=== PATIENT | female | born 1950 | race African-American/Black ===

== ENCOUNTER 2017-10-23 17:36 | Emergency (ER) | payer BC ==
[~2017-10-23] VITALS: Ht 162.6 cm; Wt 69.4 kg
[~2017-10-23 17:36] MED LIST: AMLO1CAP10 PO; AMLO1CAP5 PO; ASCO500C PO; CHOL10003 PO; CRESTOR20 MG PO; OMEG1CAP6 PO
[2017-10-23 17:50] VITALS: BP 129/82
[2017-10-23] MEDS ORDERED: TRAM-48 PO (18:36)
[2017-10-23] MEDS ORDERED: CEPH500T PO (18:36)
--- NOTE | 2017-10-23 18:37 | PHYS DOC ---
Past Medical History Past Medical History: No Pertinent History Past Surgical History: No Surgical History Alcohol Use: None Drug Use: None Adult General Chief Complaint Chief Complaint: ANKLE PROBLEM HPI HPI Patient is a 66 year old female who presents with a right ankle swelling redness and pain that began 2 weeks ago. Patient denies any known injury. Review of Systems Review of Systems Constitutional: Denies fever or chills [] Musculoskeletal: Denies back pain or joint pain [] Integument: right ankle swelling redness and pain Neurologic: Denies headache, focal weakness or sensory changes [] All other systems were reviewed and found to be within normal limits, except as documented in this note. Allergies Allergies Allergies Coded Allergies Type Severity Reaction Last Updated Verified No Known Drug Allergies 04/13/15 No Physical Exam Physical Exam Constitutional: Well developed, well nourished, no acute distress, non-toxic appearance. [] Skin: Warm, dry, no erythema, no rash. [] Back: No tenderness, no CVA tenderness. [] Extremities: Right lateral ankle with small amount of soft tissue swelling, days small amount of redness consistent with superficial cellulitis over the right ankle. Full range of motion to the right ankles and toes including flexion and extension as well as internal rotation and external rotation of the ankle. +2 right pedal pulse. Cap refill less than 2 seconds the right toes. Sensation intact to the right lower extremity. Neurologic: Alert and oriented X 3, normal motor function, normal sensory function, no focal deficits noted. [] Psychologic: Affect normal, judgement normal, mood normal. [] Current Patient Data Vital Signs Vital Signs Date Time Temp Pulse Resp B/P (MAP) Pulse Ox O2 Delivery O2 Flow Rate FiO2 10/23/17 17:50 98.1 93 16 95 Room Air 98.1 EKG EKG [] Radiology/Procedures Radiology/Procedures [] Course & Med Decision Making Course & Med Decision Making Pertinent Labs and Imaging studies reviewed. (See chart for details) Patient is in the ED with right ankle pain and swelling as well as redness for 2 weeks. Right ankle x-rays interpreted by Dr. Bustamante were negative for any acute findings. Patient does have superficial cellulitis of a the right ankle. Patient will be discharged with cephalexin and Ultram for pain. Ice wrap provided for the right ankle. Elevation and ice recommended. Follow-up with orthopedic doctor or primary care doctor in 1-2 weeks. Tetanus is up to date Dragon Disclaimer Dragon Disclaimer This electronic medical record was generated, in whole or in part, using a voice recognition dictation system. Departure Departure Impression: Primary Impression: Cellulitis of right ankle Additional Impression: Right ankle pain Disposition: 01 HOME, SELF-CARE Condition: STABLE Referrals: BEN HAGEN MD (PCP) Follow-up in 1-2 weeks ROSEMARY CAMEJO MD follow up in 1-2 weeks Patient Instructions: Ankle Pain, Cellulitis, [id number] Additional Instructions: You were seen with the right ankle pain swelling with redness. Your right ankle x-rays are negative for any fractures or acute findings. We put you on antibiotics to clear the superficial cellulitis/redness infection going on the ankle that causes swelling and pain. Wear the Seth wrap provided as tolerated. You can keep it on during the day and take it off at night. Follow up with your doctor or the provided doctor in 2 weeks Scripts Cephalexin (CEPHALEXIN) 500 Mg Tablet 1 TAB PO QID, #40 TAB Prov: THERESA PENDLETON APRN 10/23/17 Tramadol Hcl (ULTRAM) 50 Mg Tablet 1 TAB PO Q6HRS, #30 TAB Prov: THERESA PENDLETON APRN 10/23/17 Problem Qualifiers Additional Impression: Right ankle pain Chronicity: acute Qualified Codes: M25.571 - Pain in right ankle and joints of right foot THERESA PENDLETON APRN Oct 23, 2017 18:37
--- NOTE | 2017-10-24 08:50 | RAD ---
Right ankle, 3 views, 10/23/2017: History: Ankle injury There is patchy bony demineralization. No fracture or dislocation is identified. There is minimal spurring at the midfoot level. Moderate subcutaneous edema is noted. IMPRESSION: No acute bony abnormality is detected.
== END 2017-10-23 18:49 | disposition home or self-care (01) ==
LOC: ER 17:36
DX: L03.115 Cellulitis of right lower limb (principal); M25.571 Pain in right ankle and joints of right foot
CPT/HCPCS: 73610; 99284

== ENCOUNTER → 2019-03-17 | Outpatient (CLI) | payer BC, OTHER ==
[~2019-03-17] MED LIST changes: +CEPH500T PO; +TRAM-48 PO
--- NOTE | 2019-03-17 09:53 | RAD ---
DATE: 03/17/2019 EXAM: MAMMO BOB SCREENING BILATERAL HISTORY: Routine screening COMPARISON: 11/15/2016 This study was interpreted with the benefit of Computerized Aided Detection (CAD). Breast Density: SCATTERED The breast parenchyma shows scattered fibroglandular densities. Breast parenchyma level B. FINDINGS: 2-D and 3-D tomosynthesis imaging was performed in CC and MLO projections. There is an unchanged small lymph node type density present posterolaterally on the right. There is a new small nodular opacity in the lateral aspect of the left breast at approximately 9:00 location as best seen on left CC tomosynthesis images #27. There is a suggestion of associated architectural distortion. No other new or enlarging breast densities are seen. No suspicious microcalcifications are evident. IMPRESSION: Left breast asymmetry as described above. Diagnostic mammography to include spot compression CC and straight mediolateral views, as well as left breast ultrasound are suggested for further evaluation. BI-RADS CATEGORY: 0 INCOMPLETE: NEEDS ADDITIONAL IMAGING EVALUATION AND/OR PRIOR MAMMOGRAMS FOR COMPARISON. RECOMMENDED FOLLOW-UP: ADD ADDITIONAL IMAGING PQRS compliance statement: Patient information was entered into a reminder system with a target due date for the next mammogram. Mammography is a sensitive method for finding small breast cancers, but it does not detect them all and is not a substitute for careful clinical examination. A negative mammogram does not negate a clinically suspicious finding and should not result in delay in biopsying a clinically suspicious abnormality. "Our facility is accredited by the [employer] Mammography Program."
== END | disposition home or self-care (01) ==
LOC: MAMMO 07:42
PROVIDERS: ATTEND Family Medicine
DX: Z12.31 Encounter for screening mammogram for malignant neoplasm of breast (principal); N64.89 Other specified disorders of breast
CPT/HCPCS: 77063; 77067

== ENCOUNTER → 2019-03-31 | Outpatient (CLI) | payer OTHER ==
--- NOTE | 2019-03-31 11:47 | RAD ---
DATE: 03/31/2019 EXAM: DIGITAL DIAGNOSTIC LT, BREAST LEFT HISTORY: Suspicious screening study COMPARISON: 03/17/2019 This study was interpreted with the benefit of Computerized Aided Detection (CAD). Breast Density: SCATTERED The breast parenchyma shows scattered fibroglandular densities. Breast parenchyma level B. FINDINGS: Spot compression and straight mediolateral views of the left breast confirm the presence of an 8 mm irregular nodule in the upper outer quadrant of the left breast. It appears to lie at the 1-2 o'clock location. No associated microcalcifications are seen. Left breast ultrasound, 03/31/2019: The upper outer quadrant of the left breast was carefully scanned. A hypoechoic nodule is identified at the 1:00 location approximately 4 cm from the nipple. This corresponds in location to the mammographic mass. It measures 8 x 7 x 6 mm. It demonstrates angulated margins there is internal vascularity. There is a suggestion of mild posterior acoustic shadowing. No other abnormality is seen in this region. A limited exam of the left axilla demonstrated several small to medium sized axillary lymph nodes, as also noted on the mammograms. They do not demonstrate definite pathologic features. IMPRESSION: Suspicious nodule at the 1:00 location in the left breast as described above. Ultrasound-guided biopsy is suggested for further evaluation. Note: The findings were discussed with the patient at the time of the exam and is aware of our recommendation for biopsy. She will follow-up with Dr. Lester. BI-RADS CATEGORY: 4 SUSPICIOUS ABNORMALITY- BIOPSY SHOULD BE CONSIDERED RECOMMENDED FOLLOW-UP: BIO BIOPSY RECOMMENDED PQRS compliance statement: Patient information was entered into a reminder system with a target due date for the next mammogram. Mammography is a sensitive method for finding small breast cancers, but it does not detect them all and is not a substitute for careful clinical examination. A negative mammogram does not negate a clinically suspicious finding and should not result in delay in biopsying a clinically suspicious abnormality. "Our facility is accredited by the [employer] Mammography Program."
== END | disposition home or self-care (01) ==
LOC: MAMMO 10:32
PROVIDERS: ATTEND Family Medicine
DX: N63.21 Unspecified lump in the left breast, upper outer quadrant (principal)
CPT/HCPCS: 76641; 77065

== ENCOUNTER → 2019-04-19 | Outpatient (CLI) | payer OTHER ==
--- NOTE | 2019-04-19 14:12 | RAD ---
DATE: 04/19/2019. EXAM: DIGITAL DIAGNOSTIC LT, US GUID NDL PLACE/ASPI/BX. HISTORY: Left breast mass. Ultrasound-guided biopsy is requested. COMPARISON: 03/31/2019. FINDINGS: The procedure along with its risks and benefits were explained to the patient. She agreed to proceed. A timeout procedure was performed. The targeted mass at the left 1:00 position 4 cm from the nipple was visualized sonographically. The overlying skin was sterilely prepped and infiltrated with 1% lidocaine for local anesthesia. Under ultrasound guidance, 3 14-gauge core needle specimens were obtained and submitted in formalin. A postbiopsy clip was placed under ultrasound guidance. Instrumentation was withdrawn and a sterile dressing placed. There were no immediate complications. Post clip mammography was obtained digitally in CC and MLO projections and interpreted in on a dedicated workstation. This demonstrates a postbiopsy clip in correspondence with the target lesion. IMPRESSION: 1. Successful ultrasound-guided biopsy of a left breast mass at the 1:00 position 4 cm from the nipple. 2. The postbiopsy clip corresponds with the target lesion.
--- NOTE | 2019-04-21 13:08 | PATHOLOGY ---
[facility] Accession Number: [id number] . 01 Material submitted: . breast - LEFT BREAST, 10:00, 4CFN. Modifiers: left, 10:00 . 01 Clinical history: . Left breast mass . 02 Diagnosis: Breast, left, biopsy: - INVASIVE DUCTAL CARCINOMA, WELL DIFFERENTIATED. - See comment. . (MAP:[facility]; 04/20/2019) QMS/04/20/2019 . 02 Comment: Surgical Pathology Cancer Case Summary November 2017 . INVASIVE CARCINOMA OF THE BREAST BIOPSY: . Procedure ___ Needle biopsy . Specimen Laterality ___ Left . + Tumor Site: Invasive Carcinoma + ___ Not specified . Histologic Type ___ Invasive carcinoma of no special type (ductal, not otherwise specified) . Glandular (Acinar)/Tubular Differentiation ___ Score 2 (10% to 75% of tumor area forming glandular/tubular structures) . Nuclear Pleomorphism ___ Score 2 (cells larger than normal with open vesicular nuclei, visible nucleoli, and moderate variability in both size and shape) . Mitotic Rate ___ Score 1 (= 3 mitoses per mm2) (see Table 1) . Overall Grade ___ Grade 1 (scores of 3, 4, or 5) . Ductal Carcinoma In Situ (DCIS) ___ Not identified . + Lymphovascular Invasion + ___ Not identified . + Microcalcifications + ___ Not identified . Biomarker Studies ____ Pending, block A1 . . The case is discussed with Dr. Tran on 04/21/[address] Garza . Co-review: Dr. Meek . (MAP:[facility]; 04/20/2019) . 02 Electronically signed: . Andrez Garza MD, Pathologist NPI- [id number] . 01 Gross description: . The specimen is received in formalin, labeled "Gabriella Smith, left breast 10c 4cfn" and consists of 3 needle cores of yellow fibroadipose tissue measuring between 0.7 cm and 1.1 cm in length and 0.2 cm each in diameter which are entirely submitted in A1. The specimen was obtained at 1:40 PM on 04/19/2019 and placed in formalin at 1:45 PM. The cold ischemic time is 5 minutes and the total formalin fixation time is greater than 6 hours but less than 72 hours. (SDY; 04/19/2019) SYU/SYU . 02 Pathologist provided ICD-10: C50.912 . 02 CPT . 592485 Specimen Comment: A courtesy copy of this report has been sent to Specimen Comment: [phone], , . Specimen Comment: Report sent to ,DR TRAN / DR CULVER Performed at: [address], [place] [id number] MD Terry Yao MD Phone: [phone] Performed at: [address] [id number] MD Em Mendez MD Phone: [phone]
== END | disposition home or self-care (01) ==
LOC: US 15:43
PROVIDERS: ATTEND Surgery
DX: C50.912 Malignant neoplasm of unspecified site of left female breast (principal)
CPT/HCPCS: 19083; 77065; 88305; 88361; C1713; 19081; 76942

== ENCOUNTER 2019-11-01 08:52 | Emergency (ER) | payer OTHER ==
[~2019-11-01] VITALS: Ht 162.6 cm; Wt 58.5 kg
[~2019-11-01 08:52] MED LIST changes: -AMLO1CAP10 PO; +AMLO1CAP11 PO
[2019-11-01 09:16] VITALS: BP 130/100
--- NOTE | 2019-11-01 09:56 | PHYS DOC ---
Past Medical History Past Medical History: High Cholesterol, Hypertension Additional Past Medical Histor: BREAST CANCER & RADIATION Past Surgical History: Other Additional Past Surgical Histo: BREAST BIOPSY Alcohol Use: None Drug Use: None Adult General Chief Complaint Chief Complaint: BACK PAIN - NO INJURY HPI HPI Patient is a 68 year old female who presents with back pain has been ongoing since . Patient has chronic lower back pain. The patient rates her pain 9 out of 10 severity. The patient started HEENT ibuprofen at home as helped with mild success. Review of Systems Review of Systems Constitutional: Denies fever or chills [] Eyes: Denies change in visual acuity, redness, or eye pain [] HENT: Denies nasal congestion or sore throat [] Respiratory: Denies cough or shortness of breath [] Cardiovascular: No additional information not addressed in HPI [] : Denies dysuria or hematuria [] Musculoskeletal: Reports R flank pain. Integument: Denies rash or skin lesions [] Neurologic: Denies headache, focal weakness or sensory changes [] Endocrine: Denies polyuria or polydipsia [] Complete systems were reviewed and found to be within normal limits, except as documented in this note. Current Medications Current Medications Current Medications Medications (Trade) Dose Ordered Sig/Reyes Start Time Stop Time Status Last Admin Dose Admin Ketorolac Tromethamine (Toradol 30mg Vial) 30 mg 1X STAT 11/01/19 10:47 11/01/19 10:49 DC Orphenadrine Citrate (Norflex) 60 mg 1X ONCE 11/01/19 11:00 11/01/19 11:01 DC Allergies Allergies Allergies Coded Allergies Type Severity Reaction Last Updated Verified No Known Drug Allergies 04/13/15 No Physical Exam Physical Exam Constitutional: Well developed, well nourished, no acute distress, non-toxic appearance. [] HENT: Normocephalic, atraumatic, bilateral external ears normal, oropharynx m oist, no oral exudates, nose normal. [] Eyes: PERRLA, EOMI, conjunctiva normal, no discharge. [] Neck: Normal range of motion, no tenderness, supple Skin: Warm, dry, no erythema, no rash. [] Back: mild right lower back tenderness, no CVA tenderness. [] Extremities: No tenderness, no cyanosis, no clubbing, ROM intact, no edema. [] Neurologic: Alert and oriented X 3, normal motor function, normal sensory function, no focal deficits noted. [] Psychologic: Affect normal, judgement normal, mood normal. [] Current Patient Data Vital Signs Vital Signs Date Time Temp Pulse Resp B/P (MAP) Pulse Ox O2 Delivery O2 Flow Rate FiO2 11/01/19 09:16 97.6 85 18 130/100 (110) 97 Room Air 97.6 Lab Values Laboratory Tests Test 11/01/19 10:06 Urine Collection Type Unknown Urine Color Aviva Urine Clarity Clear Urine pH 5.0 Urine Specific [place] 1.025 Urine Protein Negative mg/dL (NEG-TRACE) Urine Glucose (UA) Negative mg/dL (NEG) Urine Ketones (Stick) Trace mg/dL (NEG) Urine Blood Negative (NEG) Urine Nitrite Negative (NEG) Urine Bilirubin Small (NEG) Urine Urobilinogen Dipstick 0.2 mg/dL (0.2 mg/dL) Urine Leukocyte Esterase Negative (NEG) Urine RBC 0 /HPF (0-2) Urine WBC 5-10 /HPF (0-4) Urine Squamous Epithelial Cells Mod /LPF Urine Bacteria Moderate /HPF (0-FEW) Urine Mucus Mod /LPF EKG EKG [] Radiology/Procedures Radiology/Procedures [] Course & Med Decision Making Course & Med Decision Making Pertinent Labs and Imaging studies reviewed. (See chart for details) Appears to be musculoskeletal. Will get UA to rule out UTI. UA is unremarkable. Will d/c home on Norflex. Also recommended non-pharmacological measures such as heat and exercises. Dragon Disclaimer Dragon Disclaimer This electronic medical record was generated, in whole or in part, using a voice recognition dictation system. Departure Departure Impression: Primary Impression: Musculoskeletal back pain Disposition: HOME, SELF-CARE Condition: STABLE Referrals: NO PCP (PCP) Patient Instructions: Musculoskeletal Pain Additional Instructions: Thank you for visiting [facility]. We appreciate you trusting us with your care. If any additional problems come up don't hesitate to return to visit us. Please follow up with your primary care provider so they can plan additional care if needed and know about the problem that you had. If symptoms worsen come back to the Emergency Department. Any concerning symptoms that start such as chest pain, shortness of air, weakness or numbness on one side of the body, running high fevers or any other concerning symptoms return to the ER. Please fill your medications at any pharmacy and follow the prescription instructions. Scripts Orphenadrine Citrate (ORPHENADRINE CITRATE) 100 Mg Tablet.er 100 MG PO BID PRN for MUSCLE PAIN for 7 Days, #14 TAB.SR Prov: ILIANA HARRIS APRN 11/01/19 ILIANA HARRIS APRN Nov 01, 2019 09:56
[2019-11-01 10:16] LABS: BILIRUBIN,URINE SMALL (NEG); CLARITY,URINE CLEAR; COLOR,URINE AMBER; NITRITE,URINE NEGATIVE (NEG); PROTEIN,URINE NEGATIVE (NEG-TRACE); UROBILINOGEN,URINE 0.2 mg/dL (0.2 mg/dL)
[2019-11-01 10:28] LABS: SQUAMOUS EPITHELIAL CELL,UR MOD /LPF
[2019-11-01 10:29] LABS: BACTERIA,URINE MODERATE /HPF (0-FEW); RBC,URINE 0 /HPF (0-2)
[2019-11-01] MEDS ORDERED: KETOROLAC 30 MG/ML VIAL. IM STA (10:47)
[2019-11-01] MEDS ORDERED: ORPH100T PO (10:54)
[2019-11-01] MEDS ORDERED: ORPHENADRINE CITRATE 60 MG/2 ML VIAL. IM ONE (11:00)
== END 2019-11-01 11:14 | disposition home or self-care (01) ==
LOC: ER 08:52
DX: G89.29 Other chronic pain (principal); M54.5 Low back pain; E78.00 Pure hypercholesterolemia, unspecified; I10 Essential (primary) hypertension
CPT/HCPCS: 81001; 87086; 96372; 99284; J1885; J2360